=== PATIENT | male | born 1960 | race Asian ===

== ENCOUNTER 2017-04-28 23:52 | Emergency (ER) | payer OTHER ==
[~2017-04-28] VITALS: Ht 162.6 cm; Wt 59.0 kg
[2017-04-29] MEDS ORDERED: NOHOMEMEDICATIONS (00:04)
[2017-04-29] MEDS ORDERED: TRAMADOL 50 MG50 MG PO (01:30)
[2017-04-29 01:39] VITALS: BP 128/76
[2017-04-29] MEDS ORDERED: ROBAXIN500 MG PO (02:14)
[2017-04-29] MEDS ORDERED: AUGMENTIN 500-1 EACH PO (02:14)
== END 2017-04-29 02:22 | disposition home or self-care (01) ==
LOC: ER 23:52
DX: S61.452A Open bite of left hand, initial encounter (principal); F17.210 Nicotine dependence, cigarettes, uncomplicated; W54.0XXA Bitten by dog, initial encounter; Y93.89 Activity, other specified; Y92.89 Other specified places as the place of occurrence of the external cause; Y99.8 Other external cause status